=== PATIENT | male | born 1970 | race American Indian/Alaskan Native ===

== ENCOUNTER 2025-02-10 00:19 | Emergency (ER) | payer SELFPAY ==
--- NOTE | 2025-02-10 00:28 | EDNOTE_ITS ---
ED CPR RME/HPI General Chief Complaint: Cardiac Arrest/CPR Stated Complaint: CODE BLUE Time Seen by Provider: 02/10/25 00:30 Arrival date/time: 02/10/25 00:19 RME / HPI RME / HPI narrative: Dr. Norwood?s Main ED Evaluation: 54yo male with a history of HTN, HLD BIBA from home presents to the ED with CPR actively in progress. Patient was seen by me immediately upon arrival at 0016. Per EMS, patient was last seen by family at 2100, reporting the patient was found down in the bathroom. Per EMS, fire department placed an AED on the patient, reporting he was shocked 1x. Upon EMS arrival at 2309, patient was found to be in PEA. EMS administered 8 epi, 1 Calcium Chloride, and 1 dose of amiodarone. Blood sugar here in the ED is 302. Full ROS is unobtainable due to the patient's medical condition. Per EMS, family on scene reported the patient had labs done today at [place]. Despite ED staff's best efforts, patient at 0026. Review of Systems Review of Systems ROS Unobtainable: unobtainable due to medical condition ED Exam Narrative Physical exam: GEN. APPEARANCE: Patient was in cardiac-respiratory arrest with CPR in progress. I-Gel in place. VITALS: Unobtainable. HEENT: Normocephalic, atraumatic. Pupils 2-3 mm bilaterally and are sluggish. NECK: Supple, no JVD. CHEST: No deformity and no crepitus. ABDOMEN: Soft, flat. GENITALIA: Not examined. RECTAL EXAM: Not done. EXTREMITIES: Flaccid. No edema. SKIN: Cool and dry, no rashes noted. NEURO: GCS is 3. Course Course Course Narrative: 0018: Epi in. 0019: Asystole, continued CPR. 0021: Sodium bicarb in. Asystole, continued CPR. 0022: Calcium chloride in. 0023: Epi in. Patient intubated. See procedure note. 0024: Asystole, continued CPR. Pupils are fixed and dilated. 0024: Asystole. Patient . Quality Measures none Procedures -ED Intubation Time out performed: No (performed emergently) Laryngoscope: fiber optic video scope Assist Device Used: fiber optic device ET Tube Size: 7.5 ET Tube Uncuffed: No Tube Secured Depth (cm): 30 Tube Secured Location: other (gum) Tube Placement Confirmation: visualized tube passing through cords, equal breath sounds bilaterally, no breath sounds over epigastrium and confirmation by capnometry Patient Tolerated Procedure: well and no complications Cardiac Arrest / CPR MDM Narrative MDM Narrative:: Scribe Attestation: 02/10/25 Debbie Roca am scribing for and in the presence of Dr. Norwood. Patient data External records reviewed:: [facility] previous records (Per chart review, patient has no previous ED visits or admissions to this facility.) Clinical information provided by:: EMS Social determinants that could affect healthcare access:: none Patient has the following chronic illnesses:: HTN, HLD How is presenting disease/condition affected by chronic disease/condition?: uneffected by Evaluation data The following diagnostics were reviewed and interpreted by me:: other (specify) (none) Lab and/or radiology exams considered but not ordered:: none Interpretation Summary: none Medications / Prescriptions Medications or Prescriptions considered but not ordered:: none Medication administrations:: Epinephrine, Calcium Chloride, Sodium Bicarbinate. See code sheet for medication details. Consultations Consultation(s) initiated? (list below): No Diagnosis Cardiac arrest differential diagnosis: other (arrhythmia, ACS, CVA) Most likely diagnosis given after review of the tests above:: cardiac arrest Admission Indicated Admission indicated?: not indicated Admission Request Was there a request for admission?: No Disposition Plan Disposition Plan: other (specify) (Patient .) Discharge Plan Plan Patient Disposition: Problem List Clinical Impression: Cardiac arrest Patient/Caregiver Discharge Instructions Print Language: Monegasque
== END 2025-02-10 03:43 | disposition expired ==
LOC: SERX 01:27
PROVIDERS: Emergency Provider Emergency Medicine
DX: I46.9 Cardiac arrest, cause unspecified (principal); I10 Essential (primary) hypertension; E78.5 Hyperlipidemia, unspecified
CPT/HCPCS: 31500; 92950; 99285; J0171